=== PATIENT | female | born 1990 | race American Indian/Alaskan Native ===

== ENCOUNTER 2017-10-26 10:23 | Emergency (ER) | payer MEDICAID ==
[2017-10-26 11:51] VITALS: BP 107/67
== END 2017-10-26 11:45 | disposition left against medical advice (07) ==
LOC: ED 10:23
DX: R53.1 Weakness (principal); Z53.21 Procedure and treatment not carried out due to patient leaving prior to being seen by health care provider

== ENCOUNTER 2018-04-10 10:31 | Inpatient (IN) | payer MEDICAID ==
[2018-04-10] MEDS ORDERED: ePHEDrine SULFATE IV PRN ×2 (10:55→11:50)
[2018-04-10] MEDS ORDERED: ZOFRAN IV PRN (10:55)
[2018-04-10] MEDS ORDERED: BRETHINE SUB-Q PRN (10:55)
[2018-04-10] MEDS ORDERED: SUBLIMAZE IV PRN (10:55)
[2018-04-10] MEDS ORDERED: XYLOCAINE 2% INFILTRATI ONE (10:55)
[2018-04-10] MEDS ORDERED: MINERAL OIL PO PRN (10:55)
[2018-04-10] MEDS ORDERED: POLYCILLIN/NS 2 GM/100 ML 2 GM/100 ML BAG IV ONE (10:55)
[2018-04-10] MEDS ORDERED: LACTATED RINGERS 1,000 ML IV SCH (11:00)
[2018-04-10] MEDS ORDERED: PITOCin/NS 20 UNIT/1000ML DRIP 20 UNITS/1,000 ML BAG IV SCH (11:00)
[2018-04-10] MEDS ORDERED: PITOCin/NS 30 UNIT/500ML 30 UNITS/500 ML BAG IV SCH (11:00)
--- NOTE | 2018-04-10 11:03 | History and Physical Report ---
History of Present Illness Date of examination: 04/10/18 (pt presented to Triage in Active labor) History of present illness: Exam done @ first OB visit: EDC Confirmation: 04/15/2018 Gestational Age: 21 weeks Past History : 6 Term Births: 4 Living Children: 4 Aborta: 1 Elect. Ab: 1 # 1 Delivery date: 2008 Delivery type: EAB # 2 Delivery date: 04/03/2010 Weeks Gestation: 38 labor: no Delivery type: Hours of labor: 12 Anesthesia type: epidural Delivery location: [facility] Infant Sex: Female weight: 9-5 Name: Joyce Comments: Denies shoulder dystocia # 3 Delivery date: 12/27/2013 Weeks Gestation: 39 Delivery type: Vaginal Anesthesia type: epidural Delivery location: [facility] Sex: female weight: 6.44 Name: jorge # 4 Delivery date: 03/01/2015 Weeks Gestation: 38+6 Delivery type: Vaginal Anesthesia type: none Delivery location: [facility] Sex: female weight: 6.13 Comments: none # 5 Delivery date: 05/08/2016 Weeks Gestation: 39 Delivery type: Vaginal Anesthesia type: epidural Delivery location: [facility] Infant Sex: male weight: 6.44 Comments: IUGR Past Medical History: Reviewed history from 12/23/2013 and no changes required: Anemia Past Surgical History: Reviewed history from 01/25/2016 and no changes required: negative Past Medical History Abnormal PAP: negative JANI Exposure: negative Infertility: negative Uterine Anomaly: negative Uterine Surgery (not C/S): negative Other Gynecologic Problems: negative Social Hx: Patient is single [employer] Smoking History: Patient has never smoked. Infection History Hx of STD: none Partner hx. of genital herpes: no Rash, Viral, or Febrile illness since last LMP? no Varicella/Chicken Pox Status: Previous Disease Genetic History Congenital Heart Defect: Mom: no Dad: no Mendoza Disease: Mom: no Dad: no Thalassemia Mom: no Dad: no Neural Tube Defect Mom: no Dad: no Down's Syndrome Mom: no Dad: no Jonathan-Sachs Mom: no Dad: no Sickle Cell Disease/Trait Mom: no Dad: no Hemophilia Mom: no Dad: no Muscular Dystrophy Mom: no Dad: no Cystic Fibrosis Mom: no Dad: no [place] Chorea Mom: no Dad: no Mental Retardation Mom: no Dad: no Fragile X Mom: no Dad: no Other Genetic/Chromosomal Disorder Mom: no Dad: no Child w/other defect Mom: no Dad: no Current Allergies (reviewed today): No known allergies Laboratory Results Routine Urinalysis Leukocytes: negative Nitrite: negative Urobilinogen: negative Protein: negative Blood: negative Ketone: negative Bilirubin: negative Glucose: negative Past History - Obstetrical History Expected Date of Delivery: 04/15/18 Actual Gestation: 39 Week(s) 2 Day(s) : 6 Para: 4 Hx # Term Pregnancies: 4 Number of Pregnancies: 0 Spontaneous Abortions: 0 Induced : 1 Number of Living Children: 4 Medications and Allergies Allergies Allergy/AdvReac Type Severity Reaction Status Date / Time No Known Allergies Allergy Verified 12/26/13 17:54 Home Medications Medication Instructions Recorded Confirmed Last Taken Type Pnv95/Ferrous Fumarate/FA 1 each PO QDAY #30 tablet 07/21/14 05/07/16 3 Weeks Ago Rx [ Vitamins] ~04/16/16 1 tab Ibuprofen [Motrin 800 MG tab] 800 mg PO TID PRN #30 tablet 05/08/16 Unknown Rx Lidocain2.5%/Prilocai2.5% [Emla] 5 gm TP PRN #1 tube 05/08/16 Unknown Rx - Vital Signs Vital signs: Vital Signs Pulse Pulse Ox 84 82 L 04/10/18 10:57 04/10/18 10:57 Temp Pulse Resp BP Pulse Ox 90 130/68 82 L 04/10/18 10:58 04/10/18 10:58 04/10/18 10:57 - Physical Exam Breasts: Positive: deferred Cardiovascular: Regular rate, Normal S1, Normal S2 Lungs: Positive: Normal air movement Abdomen: Positive: normal appearance, soft, normal bowel sounds. Negative: distention, tenderness Genitourinary (Female): Positive: normal external genitalia Vulva: both: normal Vagina: Positive: normal moisture. Negative: discharge Cervix: Negative: lesion, discharge Uterus: Positive: normal size, normal contour Adnexa: both: normal Anus/Rectum: Positive: normal perianal skin, heme negative. Negative: rectal mass, hemorrhoids Extremities: Positive: normal Deep Tendon Reflex Grade: Normal +2 - Obstetrical FHR: category 1 Uterine Contraction Monitor Mode: External Cervical Dilatation: 5 (per vice president payer) Cervical Effacement Percentage: 50 station: -2 Uterine Contraction Pattern: Regular Uterine Contraction Intensity: Moderate Results All other labs normal. Strep Gp B ONEAL [A] Positive done 03-22-18 HBsAg Screen Negative Negative *1 RPR Non Reactive Non Reactive *2 Rubella Antibodies, IgG 6.56 index Immune >0.99 *3 Non-immune <0.90 Equivocal 0.90 - 0.99 Immune >0.99 ABO Grouping A *4 Rh Factor Positive *5 Please note: Prior records for this patient's ABO / Rh type are not available for additional verification. Antibody Screen Negative Negative *6 WBC 6.8 x10E3/uL 3.4-10.8 *7 RBC 4.52 x10E6/uL 3.77-5.28 *8 Hemoglobin 11.1 g/dL 11.1-15.9 *9 Hematocrit 35.5 % 34.0-46.6 *10 MCV 79 fL 79-97 *11 MCH [L] 24.6 pg 26.6-33.0 *12 MCHC [L] 31.3 g/dL 31.5-35.7 *13 RDW 14.6 % 12.3-15.4 *14 Platelets 248 x10E3/uL 150-379 *15 Neutrophils 64 % Not Estab. *16 Lymphs 29 % Not Estab. *17 Monocytes 7 % Not Estab. *18 Eos 0 % Not Estab. *19 Basos 0 % Not Estab. *20 ! Immature Cells <No Reported Value> *21 Neutrophils (Absolute) 4.3 x10E3/uL 1.4-7.0 *22 Lymphs (Absolute) 2.0 x10E3/uL 0.7-3.1 *23 Monocytes(Absolute) 0.4 x10E3/uL 0.1-0.9 *24 Eos (Absolute) 0.0 x10E3/uL 0.0-0.4 *25 Baso (Absolute) 0.0 x10E3/uL 0.0-0.2 *26 ! Immature Granulocytes 0 % Not Estab. *27 ! Immature Grans (Abs) 0.0 x10E3/uL 0.0-0.1 *28 ! NRBC <No Reported Value> *29 Hematology Comments: <No Reported Value> *30 Tests: (2) Cystic Fibrosis Profile (317360) ! CF, Screen Comment: *31 RESULTS: Negative for 32 mutations analyzed Tests: (3) HB Solu + Rflx [facility] (261315) Hemoglobin (Hgb) Solubility Negative Negative *33 Tests: (4) Panel 037194 (218128) HIV Screen 4th Generation wRfx Non Reactive Non Reactive *34 Tests: (5) HCV Ab w/Rflx to Verification (553554) ! HCV Ab <0.1 s/co ratio 0.0-0.9 *35 Tests: (6) Comment: (512121) ! Comment: SPRCS *36 Non reactive HCV antibody screen is consistent with no HCV infection, unless recent infection is suspected or other evidence exists to indicate HCV infection. Tests: (7) Urine Culture, Routine (131258) Urine Culture, Routine Final report *37 Tests: (8) Result ([id number]) ! Result 1 MUG *38 Mixed urogenital gabriel 10,000-25,000 colony forming units per mL Assessment and Plan - Patient Problems (1) Active labor Onset Date: ~04/10/18 Current Visit: Yes Status: Acute Plan to address problem: 28yo @ 39 weeks in active labor GBS+ Orders in EMR Anticipate delivery (2) Group B streptococcal infection during Onset Date: ~03/22/18 Current Visit: Yes Status: Acute Plan to address problem: Ampicillin ordered per protocol
[2018-04-10 11:26] LABS: Hematocrit 37.8 % (30.3-42.9); Mean Corpuscular HGB Conc 32 % (30-34); Mean Corpuscular Volume 77 fl (79-97); Platelet Count 231 K/mm3 (140-440); Red Blood Count 4.94 M/mm3 (3.65-5.03)
[2018-04-10 11:27] LABS: Mean Corpuscular Hemoglobin 24 pg (28-32)
[2018-04-10] MEDS ORDERED: NARCAN 2 MG/2 ML IV PRN (11:50)
--- NOTE | 2018-04-10 11:50 | Anesthesia Consultation ---
Anesthesia Consult and Med Hx Date of service: 04/10/18 - Airway Anesthetic Teeth Evaluation: Good ROM Head & Neck: Adequate Mallampati Class: Class III - Pre-Operative Health Status ASA Pre-Surgery Classification: ASA3 Proposed Anesthetic Plan: Epidural - Pulmonary Hx Asthma: No COPD: No Hx Pneumonia: No - Cardiovascular System Hx Hypertension: No - Central Nervous System Hx Seizures: No Hx Psychiatric Problems: No - Endocrine Hx Renal Disease: No Hx End Stage Renal Disease: No Hx Hypothyroidism: No Hx Hyperthyroidism: No - Hematic Hx Anemia: No Hx Sickle Cell Disease: No - Other Systems Hx Alcohol Use: No Hx Obesity: Yes (BMI 42.7)
[2018-04-10] MEDS ORDERED: fentaNYL-BUPIV 2 MCG/ML-0.125% 200 MCG/100 ML BAG EPIDURAL SCH (12:00)
--- NOTE | 2018-04-10 12:50 | Progress Note ---
Assessment and Plan - Patient Problems (1) Active labor Onset Date: ~04/10/18 Current Visit: Yes Status: Acute (2) Group B streptococcal infection during Onset Date: ~03/22/18 Current Visit: Yes Status: Acute (3) Meconium in amniotic fluid Onset Date: ~04/10/18 Current Visit: Yes Status: Acute Plan to address problem: Pt tolerating labor after epidural SROM meconium NICU notified. SVE 10,100,0 Will labor down Anticipate delivery Subjective - Subjective Date of service: 04/10/18 (comfortable with epidural) Interval history: Exam done @ first OB visit: EDC Confirmation: 04/15/2018 Gestational Age: 21 weeks Past History : 6 Term Births: 4 Living Children: 4 Aborta: 1 Elect. Ab: 1 # 1 Delivery date: 2008 Delivery type: EAB # 2 Delivery date: 04/03/2010 Weeks Gestation: 38 labor: no Delivery type: Hours of labor: 12 Anesthesia type: epidural Delivery location: [facility] Infant Sex: Female weight: 9-5 Name: Joyce Comments: Denies shoulder dystocia # 3 Delivery date: 12/27/2013 Weeks Gestation: 39 Delivery type: Vaginal Anesthesia type: epidural Delivery location: [facility] Infant Sex: female weight: 6.44 Name: jorge # 4 Delivery date: 03/01/2015 Weeks Gestation: 38+6 Delivery type: Vaginal Anesthesia type: none Delivery location: [facility] Infant Sex: female weight: 6.13 Comments: none # 5 Delivery date: 05/08/2016 Weeks Gestation: 39 Delivery type: Vaginal Anesthesia type: epidural Delivery location: [facility] Infant Sex: male weight: 6.44 Comments: IUGR Past Medical History: Reviewed history from 12/23/2013 and no changes required: Anemia Past Surgical History: Reviewed history from 01/25/2016 and no changes required: negative Past Medical History Abnormal PAP: negative JANI Exposure: negative Infertility: negative Uterine Anomaly: negative Uterine Surgery (not C/S): negative Other Gynecologic Problems: negative Social Hx: Patient is single [employer] Smoking History: Patient has never smoked. Infection History Hx of STD: none Partner hx. of genital herpes: no Rash, Viral, or Febrile illness since last LMP? no Varicella/Chicken Pox Status: Previous Disease Genetic History Congenital Heart Defect: Mom: no Dad: no Mendoza Disease: Mom: no Dad: no Thalassemia Mom: no Dad: no Neural Tube Defect Mom: no Dad: no Down's Syndrome Mom: no Dad: no Jonathan-Sachs Mom: no Dad: no Sickle Cell Disease/Trait Mom: no Dad: no Hemophilia Mom: no Dad: no Muscular Dystrophy Mom: no Dad: no Cystic Fibrosis Mom: no Dad: no [place] Chorea Mom: no Dad: no Mental Retardation Mom: no Dad: no Fragile X Mom: no Dad: no Other Genetic/Chromosomal Disorder Mom: no Dad: no Child w/other defect Mom: no Dad: no Current Allergies (reviewed today): No known allergies Laboratory Results Routine Urinalysis Leukocytes: negative Nitrite: negative Urobilinogen: negative Protein: negative Blood: negative Ketone: negative Bilirubin: negative Glucose: negative Patient reports: movement normal Objective - Vital Signs Vital Signs: Vital Signs - 12hr 04/10/18 04/10/18 04/10/18 10:57 10:58 11:08 Temperature 97.6 F Pulse Rate 84 90 94 H Respiratory 18 Rate Blood Pressure 130/68 Blood Pressure 130/68 [Left] O2 Sat by Pulse 82 L 97 Oximetry 04/10/18 04/10/18 04/10/18 11:24 11:28 11:33 Temperature 97.7 F Pulse Rate 91 H 90 87 Respiratory 18 Rate Blood Pressure 99/60 Blood Pressure 99/60 [Left] O2 Sat by Pulse 100 100 100 Oximetry 04/10/18 04/10/18 04/10/18 11:38 11:43 11:46 Temperature Pulse Rate 95 H 94 H 98 H Respiratory Rate Blood Pressure Blood Pressure [Left] O2 Sat by Pulse 99 99 93 Oximetry 04/10/18 04/10/18 04/10/18 11:48 11:52 11:53 Temperature Pulse Rate 99 H 95 H 62 Respiratory Rate Blood Pressure 124/71 Blood Pressure [Left] O2 Sat by Pulse 100 74 L 82 L Oximetry 04/10/18 04/10/18 04/10/18 12:16 12:18 12:23 Temperature Pulse Rate 69 94 H Respiratory Rate Blood Pressure Blood Pressure [Left] O2 Sat by Pulse 83 L 77 L 99 Oximetry 04/10/18 04/10/18 04/10/18 12:27 12:28 12:30 Temperature Pulse Rate 99 H 99 H 93 H Respiratory Rate Blood Pressure 112/64 107/58 107/56 Blood Pressure [Left] O2 Sat by Pulse 100 88 Oximetry 04/10/18 04/10/18 04/10/18 12:32 12:33 12:34 Temperature Pulse Rate 97 H 104 H 97 H Respiratory Rate Blood Pressure 99/55 108/56 Blood Pressure [Left] O2 Sat by Pulse 99 Oximetry 04/10/18 04/10/18 04/10/18 12:36 12:38 12:41 Temperature Pulse Rate 92 H 89 87 Respiratory Rate Blood Pressure 114/57 117/67 98/53 Blood Pressure [Left] O2 Sat by Pulse 100 Oximetry 04/10/18 04/10/18 04/10/18 12:42 12:43 12:44 Temperature Pulse Rate 96 H 93 H 100 H Respiratory Rate Blood Pressure 101/51 100/53 Blood Pressure [Left] O2 Sat by Pulse 88 94 Oximetry 04/10/18 12:46 Temperature Pulse Rate 98 H Respiratory Rate Blood Pressure 98/57 Blood Pressure [Left] O2 Sat by Pulse Oximetry - Exam Breasts: deferred Cardiovascular: Regular rate Lungs: Normal air movement Abdomen: Present: normal appearance, soft. Absent: distention, tenderness Uterus: Present: normal FHR: auscultation normal, category 1 Uterine Contraction Monitor Mode: Internal Cervical Dilatation: 10 (SROM meconium) Cervical Effacement Percentage: 100 (ISE applied) station: 0 Uterine Contraction Pattern: Regular Uterine Tone Measurement Phase: Resting Uterine Contraction Intensity: Strong/Firm Extremities: normal Deep Tendon Reflex Grade: Normal +2 - Labs Labs: Abnormal Labs 04/10/18 11:00 MCV 77 L MCH 24 L RDW 17.0 H Laboratory Results - last 24 hr 04/10/18 04/10/18 11:00 11:00 WBC 8.2 RBC 4.94 Hgb 12.0 Hct 37.8 MCV 77 L MCH 24 L MCHC 32 RDW 17.0 H Plt Count 231 Blood Type A POSITIVE Antibody Screen Negative
[2018-04-10] MEDS ORDERED: TUCKS PAD TP PRN (13:15)
[2018-04-10] MEDS ORDERED: PHENERGAN PR PRN (13:15)
[2018-04-10] MEDS ORDERED: BENADRYL PO PRN (13:15)
[2018-04-10] MEDS ORDERED: DULCOLAX PR PRN (13:15)
[2018-04-10] MEDS ORDERED: LANSINOH TP PRN (13:15)
[2018-04-10] MEDS ORDERED: TYLENOL PO PRN (13:15)
[2018-04-10] MEDS ORDERED: MILK OF MAGNESIA PO PRN (13:15)
--- NOTE | 2018-04-10 13:34 | Procedure Note ---
OB Delivery Note - Delivery Date of Delivery: 04/10/18 Neurology Director: MAURICIO SIMS Estimated blood loss: 300cc - Vaginal Delivery presentation: vertex Delivery position: OA Intrapartum events: meconium Delivery induction: none Delivery augmentation: rupture of membranes Delivery monitor: external uterine, internal FHT Route of delivery: Delivery placenta: spontaneous Delivery cord: nuchal cord, 3 umbilical vessels Episiotomy: none Delivery laceration: none Anesthesia: epidural Delivery comments: NICU call to LDR prior to delivery due to meconium stained fluid live born male over intact perineum. Occult cord @ vertex, easily removed. Baby to mom's abdomen. Passed to waiting NICU team. Placenta and membrane del complete and intact, 3 vessel cord. Pit IVFs 8/9, EBL 300, Wgt 7-6. Mom and baby remain LDR stable. - A at 1 minute: 8 at 5 minutes: 9 Infant Gender: Male (wgt 7-6)
[2018-04-10] MEDS ORDERED: SODIUM CHLORIDE FLUSH SYRINGE 10 ML IV NR (14:00)
[2018-04-10] MEDS ORDERED: AMPICILLIN/NS 1 GM/50 ML 1 GM/50 ML BAG IV SCH (14:57)
[2018-04-10] MEDS: MOTRIN PO SCH ×2 (16:01→22:00)
[2018-04-11 00:31] LABS: Hematocrit 32.7 % (30.3-42.9); Hemoglobin 10.3 gm/dl (10.1-14.3)
[2018-04-11] MEDS: NORCO 5/325 PO PRN ×2 (00:58→22:05)
--- NOTE | 2018-04-11 06:53 | Progress Note ---
Assessment and Plan - Patient Problems (1) Group B streptococcal infection during Onset Date: ~03/22/18 Current Visit: Yes Status: Acute (2) Spontaneous vaginal delivery Onset Date: ~04/10/18 Current Visit: Yes Status: Acute Plan to address problem: Pt A&O X3 No c/o voiced VSS FF below umb Lochia small Perineum intact H&H drop r/t blood loss from delivery Pt is asymptomatic Doing well s/p vag del P: continue pathway D/C in AM Subjective - Subjective Date of service: 04/11/18 (no c/o voiced) Principal diagnosis: Day # 1 ; GBS+ not fully treated Interval history: Exam done @ first OB visit: EDC Confirmation: 04/15/2018 Gestational Age: 21 weeks Past History : 6 Term Births: 4 Living Children: 4 Aborta: 1 Elect. Ab: 1 # 1 Delivery date: 2008 Delivery type: EAB # 2 Delivery date: 04/03/2010 Weeks Gestation: 38 labor: no Delivery type: Hours of labor: 12 Anesthesia type: epidural Delivery location: [facility] Sex: Female weight: 9-5 Name: Joyce Comments: Denies shoulder dystocia # 3 Delivery date: 12/27/2013 Weeks Gestation: 39 Delivery type: Vaginal Anesthesia type: epidural Delivery location: [facility] Infant Sex: female weight: 6.44 Name: jorge # 4 Delivery date: 03/01/2015 Weeks Gestation: 38+6 Delivery type: Vaginal Anesthesia type: none Delivery location: [facility] Infant Sex: female weight: 6.13 Comments: none # 5 Delivery date: 05/08/2016 Weeks Gestation: 39 Delivery type: Vaginal Anesthesia type: epidural Delivery location: [facility] Sex: male weight: 6.44 Comments: IUGR Past Medical History: Reviewed history from 12/23/2013 and no changes required: Anemia Past Surgical History: Reviewed history from 01/25/2016 and no changes required: negative Past Medical History Abnormal PAP: negative JANI Exposure: negative Infertility: negative Uterine Anomaly: negative Uterine Surgery (not C/S): negative Other Gynecologic Problems: negative Social Hx: Patient is single [employer] Smoking History: Patient has never smoked. Infection History Hx of STD: none Partner hx. of genital herpes: no Rash, Viral, or Febrile illness since last LMP? no Varicella/Chicken Pox Status: Previous Disease Genetic History Congenital Heart Defect: Mom: no Dad: no Mendoza Disease: Mom: no Dad: no Thalassemia Mom: no Dad: no Neural Tube Defect Mom: no Dad: no Down's Syndrome Mom: no Dad: no Jonathan-Sachs Mom: no Dad: no Sickle Cell Disease/Trait Mom: no Dad: no Hemophilia Mom: no Dad: no Muscular Dystrophy Mom: no Dad: no Cystic Fibrosis Mom: no Dad: no [place] Chorea Mom: no Dad: no Mental Retardation Mom: no Dad: no Fragile X Mom: no Dad: no Other Genetic/Chromosomal Disorder Mom: no Dad: no Child w/other defect Mom: no Dad: no Current Allergies (reviewed today): No known allergies Laboratory Results Routine Urinalysis Leukocytes: negative Nitrite: negative Urobilinogen: negative Protein: negative Blood: negative Ketone: negative Bilirubin: negative Glucose: negative Patient reports: appetite normal, voiding normally, pain well controlled, ambulating normally : doing well Objective - Vital Signs Latest vital signs: Vital Signs Temp Pulse Resp BP BP Pulse Ox 04/11/18 00:30 98.6 F 69 16 104/56 04/10/18 19:30 98.7 F 77 18 101/68 04/10/18 17:23 98 F 83 22 123/81 04/10/18 15:29 97.6 F 83 20 99/53 04/10/18 14:23 67 77 L 04/10/18 14:19 97.8 F 77 16 104/57 104/57 04/10/18 14:11 86 98/57 04/10/18 14:10 70 48 L 04/10/18 14:04 73 86 04/10/18 14:03 84 82 L 04/10/18 13:59 83 99 04/10/18 13:54 88 100 04/10/18 13:50 82 112/56 04/10/18 13:49 79 89 04/10/18 13:45 97.8 F 82 16 112/56 04/10/18 13:39 88 80/46 04/10/18 13:37 87 80/44 04/10/18 13:35 100 H 85/53 04/10/18 13:34 96 H 106/57 04/10/18 13:33 70 81 L 06/13/18 13:21 77 L 04/10/18 13:20 100 H 118/79 04/10/18 13:16 82 L 04/10/18 13:11 97.7 F 99 H 18 109/53 109/53 04/10/18 12:57 95 H 121/57 04/10/18 12:54 88 99/55 04/10/18 12:52 88 106/55 04/10/18 12:50 85 115/55 04/10/18 12:49 86 121/56 04/10/18 12:46 98 H 98/57 04/10/18 12:44 100 H 100/53 04/10/18 12:43 93 H 94 04/10/18 12:42 96 H 101/51 88 04/10/18 12:41 87 98/53 04/10/18 12:38 89 117/67 100 04/10/18 12:36 92 H 114/57 04/10/18 12:34 97 H 108/56 04/10/18 12:33 104 H 99 04/10/18 12:32 97 H 99/55 04/10/18 12:30 93 H 107/56 88 04/10/18 12:28 99 H 107/58 100 04/10/18 12:27 99 H 112/64 04/10/18 12:23 94 H 99 04/10/18 12:18 69 77 L 04/10/18 12:16 83 L 04/10/18 11:53 62 82 L 04/10/18 11:52 95 H 124/71 74 L 04/10/18 11:48 99 H 100 04/10/18 11:46 98 H 93 04/10/18 11:43 94 H 99 04/10/18 11:38 95 H 99 04/10/18 11:33 87 100 04/10/18 11:28 90 99/60 100 04/10/18 11:24 97.7 F 91 H 18 99/60 100 04/10/18 11:08 97.6 F 94 H 18 130/68 97 04/10/18 10:58 90 130/68 04/10/18 10:57 84 82 L Intake and Output 04/10/18 04/10/18 04/11/18 14:59 22:59 06:59 Intake Total 240 300 Output Total 200 600 Balance -200 -360 300 Intake: Oral 240 Intake, Free Water 300 Output: Urine 200 600 Void 200 600 Other: Total, Intake Amount 240 Total, Output Amount 200 600 Weight 226 lb Estimated Blood Loss 300 Patient Weight 04/11/18 06:59 Weight 226 lb - Exam Breasts: Present: normal Cardiovascular: Present: Regular rate Lungs: Present: Clear to auscultation, Normal air movement Abdomen: Present: normal appearance, soft, normal bowel sounds Vulva: both: normal Uterus: Present: normal, firm, fundal height below umbilicus Extremities: Present: normal Deep Tendon Reflex Grade: Normal +2 - Labs Labs: Abnormal lab results 04/10/18 Range/Units 11:00 MCV 77 L (79-97) fl MCH 24 L (28-32) pg RDW 17.0 H (13.2-15.2) %
[2018-04-11] MEDS: MOTRIN PO SCH ×2 (12:08→19:16)
[2018-04-11] MEDS ORDERED: BOOSTRIX IM ONE (13:15)
[2018-04-11] MEDS ORDERED: M-M-R II VACCINE SUB-Q ONE (13:15)
[2018-04-12] MEDS: NORCO 5/325 PO PRN (04:21)
[2018-04-12] MEDS: MOTRIN PO SCH ×4 (04:21→20:00)
--- NOTE | 2018-04-12 08:35 | Progress Note ---
Assessment and Plan pt , c/o feeling dizzy. States she is dizzy sitting in bed , she took a shower and when she got out she was dizzy and shaking. 12h post delivery H&H 10.3/32.7, will order repeat as well as EKG. Pt had [place] this AM that could be contributing to dizziness - will d/c. Also discussed the need for frequent meals and hydration as hypoglycemia can cause a feeling of lightheadedness and dizziness. Lochia scant, fundus firm, infant w / good latch. Will reassess and if stable, plan for d/c this afternoon. Will consult Dr. Garvin. - Patient Problems (1) Spontaneous vaginal delivery Onset Date: ~04/10/18 Current Visit: Yes Status: Acute (2) Dizziness of unknown cause Current Visit: Yes Status: Acute Subjective - Subjective Date of service: 04/12/18 Principal diagnosis: Day # 2 Patient reports: appetite normal, voiding normally, dizzy ambulation, pain well controlled, ambulating normally, no nauseated : doing well, nursing well Objective - Vital Signs Latest vital signs: Vital Signs Temp Pulse Resp BP BP Pulse Ox 04/12/18 01:28 98.7 F 79 20 89/45 97 04/11/18 16:00 98 F 80 18 94/48 04/11/18 12:00 98.6 F 64 18 90/48 - Exam Breasts: Present: normal Cardiovascular: Present: Regular rate Lungs: Present: Clear to auscultation, Normal air movement Abdomen: Present: normal appearance, soft Vulva: both: normal Uterus: Present: normal, firm, fundal height at umbilicus Extremities: Present: normal Deep Tendon Reflex Grade: Normal +2
[2018-04-12 09:17] LABS: Hemoglobin 11.3 gm/dl (10.1-14.3)
--- NOTE | 2018-04-12 14:48 | Event Note ---
Date: 04/12/18 patient continues to c/o feeling dizzy and does not want to go home. EKG NSR, H &H stable, VSSAF, no narcotics since earlythis morning. Dr. Garvin consulted - will get mental health evaluation. Order in computer, [employer] usage meter clerk informed of consult.
--- NOTE | 2018-04-12 18:01 | Event Note ---
Date: 04/12/18 Pt seems to be doing well. Will obtain psych consult as pt had depression during the . Zoloft restarted. Will d/c home if cleared by psych.
[2018-04-13] MEDS: MOTRIN PO SCH ×2 (02:00→08:50)
[2018-04-13] MEDS ORDERED: ZOLOFT PO SCH ×2 (09:07→10:00)
--- NOTE | 2018-04-13 09:54 | Discharge Summary ---
Providers - Providers Date of Admission: 04/10/18 10:32 Date of discharge: 04/13/18 Attending physician: SHIVA GUTIERREZ 04/12/18 14:44 Consult to Mental Health [CONS] Routine Reason For Exam: hx depression during Place consult to:: Mental joleen provider collection development librarian - chemical unit operatorclerk Cota informed Notified:: mental health Phone number called:: [phone] Was contact made?: Yes If yes, spoke with:: Sonja Time called:: 15:08 Comment:: Sonja will follow up. Primary care physician: SHIVA GUTIERREZ Hospitalization Reason for admission: active labor Delivery: Episiotomy: none Laceration: none Other procedures: none Discharge diagnosis: IUP at term delivered [place] baby: male Hospital course: patient present active labor and had that was uncomplicated. She had myriad vague complaints with a normal evaluation. Now she is without complaints, will allow home Condition at discharge: Good Disposition: DC-01 TO HOME OR SELFCARE - Discharge Diagnoses (1) Depression Status: Chronic (2) Insufficient care in third trimester Status: Acute (3) Single live Status: Acute (4) Spontaneous vaginal delivery Status: Acute Plan - Discharge Medications Prescriptions: Ibuprofen [Motrin 800 MG tab] 800 mg PO TID PRN #30 tablet PRN Reason: Pain Lidocain2.5%/Prilocai2.5% [Emla] 5 gm TP PRN #1 tube Sertraline [Zoloft] 50 mg PO QDAY #30 tablet - Provider Discharge Summary Activity: other (No sex until after IUD is inserted) Diet: routine Instructions: other (Your prescription for Zoloft has been sent to the [facility] as requested) Additional instructions: [] Smoking cessation referral if applicable(refer to patient education folder for contact #) [] Refer to [facility] Booklet Call your doctor immediately for: * Fever > 100.5 * Heavy vaginal bleeding ( >1 pad per hour) * Severe persistent headache * Shortness of breath * Reddened, hot, painful area to leg or breast * Drainage or odor from incision. * Keep incision clean and dry at all times and follow doctor's instructions regarding bathing/showering - Follow up plan Follow up: SHIVA GUTIERREZ MD [Primary Care Provider] - 7 Days Forms: C Discharge Summary
[2018-04-13 11:35] VITALS: BP 99/48
== END 2018-04-13 12:30 | disposition home or self-care (01) | DRG 774 ==
LOC: TRG 10:31 → LD 10:32 → TRG 10:36 → OB 15:02
PROVIDERS: ADMIT Obstetrics & Gynecology; ATTEND Obstetrics & Gynecology
PROC: 10E0XZZ Delivery of Products of Conception, External Approach (ICD-10-PCS; principal; 2018-04-10)
PROC: 00HU33Z Insertion of Infusion Device into Spinal Canal, Percutaneous Approach (ICD-10-PCS; 2018-04-10)
PROC: 3E0R3BZ Introduction of Anesthetic Agent into Spinal Canal, Percutaneous Approach (ICD-10-PCS; 2018-04-10)
PROC: 3E0234Z Introduction of Serum, Toxoid and Vaccine into Muscle, Percutaneous Approach (ICD-10-PCS; 2018-04-11)
DX: O77.0 Labor and delivery complicated by meconium in amniotic fluid (principal); O90.89 Other complications of the puerperium, not elsewhere classified; R42 Dizziness and giddiness; Z3A.39 39 weeks gestation of pregnancy; Z37.0 Single live birth; Z23 Encounter for immunization; Z79.899 Other long term (current) drug therapy; O69.81X0 Labor and delivery complicated by cord around neck, without compression, not applicable or unspecified; O99.344 Other mental disorders complicating childbirth; F32.9 Major depressive disorder, single episode, unspecified; O99.824 Streptococcus B carrier state complicating childbirth
CPT/HCPCS: 36415; 82962; 85014; 85018; 85027; 86592; 86850; 86900; 86901; 93005; 93010; 99211; G0463; J0290; J2590; J7120

== ENCOUNTER 2020-02-16 06:48 | Inpatient (IN) | payer MEDICAID | END 2020-02-18 15:43 | disposition home or self-care (01) | DRG 775 | LOC: TRG 06:48 → APU 06:55 → TRG 07:46 → LD 07:47 → OB 17:01 | PROVIDERS: ADMIT Obstetrics & Gynecology | PROC: 10E0XZZ Delivery of Products of Conception, External Approach (ICD-10-PCS; principal; 2020-02-16) | PROC: 3E0R3BZ Introduction of Anesthetic Agent into Spinal Canal, Percutaneous Approach (ICD-10-PCS; 2020-02-16) | PROC: 00HU33Z Insertion of Infusion Device into Spinal Canal, Percutaneous Approach (ICD-10-PCS; 2020-02-16) | DX: O77.0 Labor and delivery complicated by meconium in amniotic fluid (principal); O99.214 Obesity complicating childbirth; E66.9 Obesity, unspecified; O90.81 Anemia of the puerperium; D50.9 Iron deficiency anemia, unspecified; Z3A.41 41 weeks gestation of pregnancy; Z37.0 Single live birth; Z83.3 Family history of diabetes mellitus; Z82.49 Family history of ischemic heart disease and other diseases of the circulatory system; Z87.440 Personal history of urinary (tract) infections ==

== ENCOUNTER 2021-09-24 17:43 | Emergency (ER) | payer MEDICAID ==
[2021-09-24 17:49] VITALS: BP 128/68
[2021-09-24] MEDS ORDERED: ONDANSETRON 4 MG ODT TAB PO ONE (18:54)
--- NOTE | 2021-09-24 18:54 | Emergency Department Report ---
ED General Adult HPI - General Chief complaint: Nausea/Vomiting/Diarrhea Stated complaint: VOMITING Time Seen by Provider: 09/24/21 18:53 Source: patient Mode of arrival: Ambulatory Limitations: No Limitations - History of Present Illness Initial comments: 31-year-old female presents to the ER today with complaints of nausea and vomiting. Patient states that symptoms started about 4 days ago. She states that she has been vomiting at least once a day, the worst day was 2 days ago when she vomited about 3 times. She denies any abdominal pain, she denies any diarrhea, UTI symptoms or any abnormal vaginal symptoms. She states that her last bowel movement was 4 days ago. She does have a history of constipation and does not use the bathroom regularly. She has not tried any qhet-yyn-xoilzai medication to help with her bowel movements. She denies any recent antibiotic use, bad food intake or recent travel out of the country. She denies any hi story of abdominal surgeries. And she denies any significant past medical history. Her last menstrual cycle was about 3 weeks ago. MD Complaint: nausea and vomiting -: Gradual, days(s) (5) Severity scale (0 -10): 0 - Related Data Previous Rx's Medication Instructions Recorded Last Taken Type Pnv95/Ferrous Fumarate/FA 1 each PO QDAY #30 tablet 07/21/14 1 Day Ago Rx [ Vitamins] ~04/09/18 1 Ibuprofen [Motrin 800 MG tab] 800 mg PO TID PRN #30 tablet 04/11/18 Unknown Rx Lidocain2.5%/Prilocai2.5% [Emla] 5 gm TP PRN #1 tube 04/11/18 Unknown Rx Sertraline [Zoloft] 50 mg PO QDAY #30 tablet 04/13/18 Unknown Rx Ferrous Sulfate [Feosol 325 MG tab] 325 mg PO QDAY 30 Days #30 tablet 02/17/20 Unknown Rx Ondansetron [Zofran Odt] 4 mg PO Q8HR #15 tab.rapdis 09/24/21 Unknown Rx Allergies Allergy/AdvReac Type Severity Reaction Status Date / Time No Known Allergies Allergy Verified 12/26/13 17:54 ED Review of Systems ROS: Stated complaint: VOMITING Other details as noted in HPI Comment: All other systems reviewed and negative Constitutional: denies: chills, fever Eyes: denies: eye pain, eye discharge, vision change ENT: denies: ear pain, throat pain, dental pain, hearing loss, epistaxis, congestion Respiratory: denies: cough, shortness of breath, SOB with exertion, SOB at rest, wheezing Cardiovascular: denies: chest pain, palpitations Gastrointestinal: nausea, vomiting. denies: abdominal pain, diarrhea, constipation, hematemesis, melena, hematochezia Genitourinary: denies: urgency, dysuria, frequency, hematuria, discharge, abnormal menses, dyspareunia Musculoskeletal: denies: back pain, joint swelling, arthralgia, myalgia Skin: denies: rash, lesions, change in color, change in hair/nails, pruritus Neurological: denies: headache, weakness, numbness, paresthesias, confusion, abnormal gait, vertigo Psychiatric: denies: anxiety, depression, auditory hallucinations, visual hallucinations, homicidal thoughts, suicidal thoughts Hematological/Lymphatic: denies: easy bleeding, easy bruising ED Past Medical Hx - Past Medical History Hx Hypertension: No Hx Congestive Heart Failure: No Hx Diabetes: No Hx Deep Vein Thrombosis: No Hx Renal Disease: No Hx Sickle Cell Disease: No Hx Seizures: No Hx Asthma: No Hx COPD: No Hx HIV: No - Social History Smoking Status: Never Smoker - Medications Home Medications: Home Medications Medication Instructions Recorded Confirmed Last Taken Type Pnv95/Ferrous Fumarate/FA 1 each PO QDAY #30 tablet 07/21/14 02/16/20 1 Day Ago Rx [ Vitamins] ~04/09/18 1 Ibuprofen [Motrin 800 MG tab] 800 mg PO TID PRN #30 tablet 04/11/18 02/16/20 Unknown Rx Lidocain2.5%/Prilocai2.5% [Emla] 5 gm TP PRN #1 tube 04/11/18 02/16/20 Unknown Rx Sertraline [Zoloft] 50 mg PO QDAY #30 tablet 04/13/18 02/16/20 Unknown Rx Ferrous Sulfate [Feosol 325 MG tab] 325 mg PO QDAY 30 Days #30 tablet 02/17/20 Unknown Rx Ondansetron [Zofran Odt] 4 mg PO Q8HR #15 tab.rapdis 09/24/21 Unknown Rx ED Physical Exam - General Limitations: No Limitations General appearance: alert, in no apparent distress - Head Head exam: Present: atraumatic, normocephalic, normal inspection - Eye Eye exam: Present: normal appearance, PERRL, EOMI Pupils: Present: normal accommodation - ENT ENT exam: Present: normal exam, mucous membranes moist, TM's normal bilaterally - Neck Neck exam: Present: normal inspection, full ROM. Absent: meningismus - Respiratory Respiratory exam: Present: normal lung sounds bilaterally. Absent: respiratory distress, wheezes, rales, rhonchi, stridor - Cardiovascular Cardiovascular Exam: Present: regular rate, normal rhythm, normal heart sounds - GI/Abdominal GI/Abdominal exam: Present: soft. Absent: distended, tenderness, guarding, rebound - Neurological Exam Neurological exam: Present: alert, oriented X3, CN II-XII intact, normal gait - Psychiatric Psychiatric exam: Present: normal affect, normal mood - Skin Skin exam: Present: intact ED Course Vital Signs 09/24/21 17:44 Temperature 98.1 F Pulse Rate 103 H Respiratory 16 Rate Blood Pressure 128/68 [Right] O2 Sat by Pulse 100 Oximetry ED Medical Decision Making - Medical Decision Making UA negative for UTI. hCG is positive. Patient is currently resting comfortably. She is not in any acute distress. She denies any abdominal pain. She has a soft nontender abdomen. She has no abnormal vaginal bleeding. Patient was surprised by the results of her test. She states that she already has 6 kids at home and typically knows when she is . Given that patient has no abdominal pelvic symptoms or any vaginal bleeding, no indication for any additional work-up at this time. Patient agrees to follow-up outpatient with her VAT OPERATOR. She understands to return if at any point she starts having pain or bleeding. To be given medication to help with the nausea and vomiting. Patient was stable at time of discharge. Critical care attestation.: If time is entered above; I have spent that time in minutes in the direct care of this critically ill patient, excluding procedure time. ED Disposition Clinical Impression: , Nausea and vomiting Disposition: 01 HOME / SELF CARE / HOMELESS Is pt being admited?: No Does the pt Need Aspirin: No Condition: Stable Instructions: First Trimester of Additional Instructions: Take the Zofran as prescribed to help with any nausea or vomiting. Recommend that you start taking vitamins and you can get those from [id number]. Recommend that you call your VAT OPERATOR to set up an appointment to start care. Return to the ER if any point you develop any abdominal pain/pelvic pain or any abnormal vaginal bleeding. Prescriptions: Ondansetron [Zofran Odt] 4 mg PO Q8HR #15 tab.rapdis Referrals: [facility] [Provider Group] - 3-5 Days Time of Disposition: 20:44
[2021-09-24 20:33] LABS: HCG Qualitative,Urine Positive (Negative)
[2021-09-24 20:34] LABS: Bilirubin,Urine NEG (Negative); Blood,Urine NEG (Negative); Color,Urine Yellow (Yellow); Mucus,Urine FEW /HPF; Protein,Urine <15 mg/dL mg/dL (Negative)
== END 2021-09-24 21:20 | disposition home or self-care (01) ==
LOC: ED 17:43
DX: O21.8 Other vomiting complicating pregnancy (principal); Z3A.00 Weeks of gestation of pregnancy not specified
CPT/HCPCS: 81001; 81025; 99283; J3490; Q0162